=== PATIENT | male | born 1975 ===

== ENCOUNTER → 2019-12-18 10:37 | Outpatient (BNVA) | payer BC, SELFPAY | PROVIDERS: PCP Internal Medicine; Visit Provider Urology | DX: Z76.89 Persons encountering health services in other specified circumstances (principal) ==

== ENCOUNTER → 2020-07-14 14:14 | Outpatient (BNVA) | payer BC, SELFPAY | PROVIDERS: Visit Provider Urology ==

== ENCOUNTER → 2020-11-16 13:28 | Outpatient (BNVA) | payer BC, SELFPAY | PROVIDERS: Visit Provider Urology ==

== ENCOUNTER → 2022-02-14 09:40 | Outpatient (BNVA) | payer BC, SELFPAY | PROVIDERS: Visit Provider Urology | DX: E29.1 Testicular hypofunction (principal) ==

== ENCOUNTER 2022-12-20 10:42 | Outpatient (AMB) | payer BC, SELFPAY ==
--- NOTE | 2022-12-20 10:52 | MHC.OFFVIS ---
Intake Intake Visit Reasons: 6M PSA/TESTO(SET) Intake Note: Patient is Present for Follow Up Urology Medication: Clomiphene (Needs refill) Antibiotic Allergies: None Blood Thinners: None Pharmacy: [facility] PVR: Compliants: Allergies No Known Allergies Allergy (Verified 02/14/22 10:00) Medication List - Last Reconciled 12/20/22 by William Sorenson MD amlodipine 5 mg PO DAILY blood-glucose sensor (Dexcom G6 Sensor device) As directed blood-glucose transmitter (Dexcom G6 Transmitter device) As directed clomiphene citrate 50 mg PO DAILY 90 days glimepiride 2 mg PO DAILY ibuprofen 800 mg PO TID lisinopril 40 mg PO DAILY lisinopril 30 mg PO DAILY metformin ER 1,500 mg PO DAILY metoprolol succinate ER 75 mg PO DAILY metoprolol succinate ER 100 mg PO DAILY pioglitazone 30 mg PO DAILY sacubitril-valsartan 49-51 mg 1 tab PO BID semaglutide 7 mg PO DAILY semaglutide (Rybelsus) 14 mg PO QAM sertraline 50 mg PO DAILY tadalafil 5 mg PO DAILY 90 days HPI HPI Comments History of Present Illness Details Pal is a pleasant male. He has seen for following urologic conditions - hypogonadism - erectile dysfunction 12/11 - T 478 Off clomiphene past 5 months Start low-dose tadalafil 6 month follow-up Hypogonadism: Stable restart with clomiphene The patient presents for hypogonadism which was diagnosed years ago. Laboratory testing has included Testosterone - 1200 on gel 03/07 on Clomid T 278 - switch to daily 04/07 Clomid daily - T 555, Estradiol 47 09/04 , Testosterone 480 09/05 , Testosterone 600, Est 53, PSA 1.5 09/06 T 628 PSA 2.8 04/10 T 640 PSA 2.0. - 12/08 T 540, 06/09 T 712, 11/09 T 669, 02/09 T 555 P 0.7 Medication(s) include Testosterone gel. April 2015 switched to clomid 50 mg QOD. Feb 2016 - switch to clomid 50mg daily Jul 2017 clomid 100mg daily May 2020 Clomid 50 mg daily Follow-up in 6 months Review of Systems Const Denies chills and Denies fever(s) Card Reports no additional complaints and Denies syncope Resp Denies cough GI Denies abdominal pain and Denies heartburn Reports as per HPI and Denies change in libido Neuro Denies syncope Psych Denies change in libido Endo Denies change in libido Physical Exam Const General: cooperative, healthy appearing, comfortable and no acute distress Orientation/consciousness: patient oriented x3 HEENT Face and sinus: Yes normal facial exam Mouth: moist mucous membranes Neck Neck: Yes normal visual inspection, Yes full ROM and Yes trachea midline Chest Chest palpation & inspection: normal inspection of the chest Resp Effort & Inspection: normal respiratory effort, able to speak in complete sentences and no respiratory distress GI Inspection: Yes normal to inspection Back/Spine/Pelvis Cervical Spine: normal cervical lordosis Thoracic/Lumbar Spine: thoracic and lumbar spine normal to inspection Skin General skin exam: no rashes or lesions noted Neuro General: patient oriented x3, gait normal, tone normal and moves all extremities Extrem General: Yes normal to inspection and Yes capillary refill normal Assessment & Plan Assessment & Plan (1) Hypogonadism in male: Comment: good response to clomiphene 50 mg Code(s): E29.1 - Testicular hypofunction (2) Erectile dysfunction associated with type 2 diabetes mellitus: Code(s): E11.69 - Type 2 diabetes mellitus with other specified complication; N52.1 - Erectile dysfunction due to diseases classified elsewhere Plan Six month Orders: Orders Testosterone, Total 6 Months E29.1 - Testicular hypofunction Medications: New tadalafil 5 mg PO DAILY 90 tabs 1RF sexual activity 90 days E29.1 - Testicular hypofunction, N52.01 - Erectile dysfunction due to arterial insufficiency Patient Instructions: Imaging studies, laboratory and physical exam results were discussed and reviewed in detail. No major barriers to patient understanding were identified. An opportunity to ask questions regarding the treatment plan was provided. All questions were answered. The patient expressed understanding and agreement with the above treatment plan. The patient is aware they should contact our office by phone for worsening of their current condition or the appearance of new urologic symptoms. Compliance is encouraged with any medications and followup testing that is ordered. It is a privilege to participate in the urologic care of your patient. If you have any questions or concerns regarding treatment for the above conditions, or other urologic issues, please do not hesitate to contact me. The office telephone contact is [phone]. This note is constructed using voice recognition software. While every effort has been made to ensure accuracy catcher helper errors may have been included. Yours sincerely, Dr William Sorenson MD, MARTIN [facility] - Urology Providers of Expert, Compassionate Care for the Genitourinary System Coding Level of Care Code Est Pt Level 4 (81507) Diagnoses Hypogonadism in male E29.1 Erectile dysfunction associated with type 2 diabetes mellitus E11.69; N52.1
== END 2022-12-20 11:20 | disposition home or self-care (01) ==
PROVIDERS: Visit Provider Urology
DX: E29.1 Testicular hypofunction (principal); E11.69 Type 2 diabetes mellitus with other specified complication; N52.1 Erectile dysfunction due to diseases classified elsewhere
CPT/HCPCS: 99214

== ENCOUNTER → 2022-12-20 10:42 | Outpatient (BNVA) | payer BC, SELFPAY | PROVIDERS: Visit Provider Urology ==

== ENCOUNTER 2023-06-20 14:15 | Outpatient (AMB) | payer BC, SELFPAY ==
--- NOTE | 2023-06-20 14:38 | A.OFFVIS_ITS ---
Intake Visit Reasons: 6M Testosterone(set)Confirmed Intake Note: Patient is Present for Follow Up Urology Medication: No longer taking Tadalafil Antibiotic Allergies:None Blood Thinners: None Allergies No Known Allergies Allergy (Verified 06/20/23 14:42) Medication List - Last Reconciled 06/20/23 by William Sorenson MD amlodipine 5 mg PO DAILY blood-glucose sensor (Dexcom G6 Sensor device) As directed blood-glucose transmitter (Dexcom G6 Transmitter device) As directed clomiphene citrate 50 mg PO DAILY 90 days glimepiride 2 mg PO DAILY ibuprofen 800 mg PO TID lisinopril 40 mg PO DAILY lisinopril 30 mg PO DAILY metformin ER 1,500 mg PO DAILY metoprolol succinate ER 75 mg PO DAILY metoprolol succinate ER 100 mg PO DAILY pioglitazone 30 mg PO DAILY sacubitril-valsartan 49-51 mg 1 tab PO BID semaglutide 7 mg PO DAILY semaglutide (Rybelsus) 14 mg PO QAM sertraline 50 mg PO DAILY tadalafil 5 mg PO DAILY 90 days HPI Comments Details: Pal is a pleasant male. He has seen for following urologic conditions - hypogonadism - erectile dysfunction Recent testosterone 250 Willing to trial daily low-dose tadalafil Impression provided Six-month follow-up repeat labs Hypogonadism: Stable restart with clomiphene The patient presents for hypogonadism which was diagnosed years ago. Laboratory testing has included Testosterone - 1200 on gel 03/07 on Clomid T 278 - switch to daily 04/07 Clomid daily - T 555, Estradiol 47 09/04 , Testosterone 480 09/05 , Testosterone 600, Est 53, PSA 1.5 09/06 T 628 PSA 2.8 04/10 T 640 PSA 2.0. - 12/08 T 540, 06/09 T 712, 11/09 T 669, 02/09 T 555 P 0.7, 12/11 T 480, 06/12 250 Medication(s) include Testosterone gel. April 2015 switched to clomid 50 mg QOD. Feb 2016 - switch to clomid 50mg daily Jul 2017 clomid 100mg daily May 2020 Clomid 50 mg daily Follow-up in 6 months Review of Systems Const Denies chills and Denies fever(s) Card Reports no additional complaints and Denies syncope Resp Denies cough GI Denies abdominal pain and Denies heartburn Reports as per HPI and Denies change in libido Neuro Denies syncope Psych Denies change in libido Endo Denies change in libido Physical Exam Const General: cooperative, healthy appearing, comfortable and no acute distress Orientation/consciousness: patient oriented x3 HEENT Face and sinus: Yes normal facial exam Mouth: moist mucous membranes Neck Neck: Yes normal visual inspection, Yes full ROM and Yes trachea midline Chest Chest palpation & inspection: normal inspection of the chest Resp Effort & Inspection: normal respiratory effort, able to speak in complete sentences and no respiratory distress GI Inspection: Yes normal to inspection Back/Spine/Pelvis Cervical Spine: normal cervical lordosis Thoracic/Lumbar Spine: thoracic and lumbar spine normal to inspection Skin General skin exam: no rashes or lesions noted Neuro General: patient oriented x3, gait normal, tone normal and moves all extremities Extrem General: Yes normal to inspection and Yes capillary refill normal Assessment & Plan Assessment & Plan (1) Hypogonadism in male: Comment: good response to clomiphene 50 mg Code(s): E29.1 - Testicular hypofunction Category: Medical (2) Erectile dysfunction associated with type 2 diabetes mellitus: Code(s): E11.69 - Type 2 diabetes mellitus with other specified complication; N52.1 - Erectile dysfunction due to diseases classified elsewhere Category: Medical Plan Six-month follow-up testosterone Orders: Orders Testosterone, Free/Total 6 Months E29.1 - Testicular hypofunction Medications: Refilled tadalafil 5 mg PO DAILY 90 tabs 1RF sexual activity 90 days E29.1 - Testicular hypofunction Patient Instructions: Imaging studies, laboratory and physical exam results were discussed and reviewed in detail. No major barriers to patient understanding were identified. An opportunity to ask questions regarding the treatment plan was provided. All questions were answered. The patient expressed understanding and agreement with the above treatment plan. The patient is aware they should contact our office by phone for worsening of their current condition or the appearance of new urologic symptoms. Compliance is encouraged with any medications and followup testing that is ordered. It is a privilege to participate in the urologic care of your patient. If you have any questions or concerns regarding treatment for the above conditions, or other urologic issues, please do not hesitate to contact me. The office telephone contact is [phone]. This note is constructed using voice recognition software. While every effort has been made to ensure accuracy blue leather setter errors may have been included. Yours sincerely, Dr William Sorenson MD, [facility] - Urology Providers of Expert, Compassionate Care for the Genitourinary System Coding Level of Care Code Est Pt Level 4 (69808) Diagnoses Hypogonadism in male E29.1 Erectile dysfunction associated with type 2 diabetes mellitus E11.69; N52.1
== END 2023-06-20 15:36 | disposition home or self-care (01) ==
PROVIDERS: Visit Provider Urology
DX: E29.1 Testicular hypofunction (principal); E11.69 Type 2 diabetes mellitus with other specified complication; N52.1 Erectile dysfunction due to diseases classified elsewhere
CPT/HCPCS: 99213

== ENCOUNTER → 2023-06-20 14:15 | Outpatient (BNVA) | payer BC, SELFPAY | PROVIDERS: Visit Provider Urology ==

== ENCOUNTER 2023-12-12 11:11 | Outpatient (AMB) | payer BC, SELFPAY ==
--- NOTE | 2023-12-12 11:22 | MHC.OFFVIS ---
Intake Visit Reasons: 6m/labs(set) Intake Note: Patient is present for Follow Up Testosterone Results Urology Med: Tadalafil Antibiotic Allergy: None Blood Thinner: None Recent Testosterone: 12/04/2023 Total Testosterone: 323 Free Testosterone: 8.3 Sales Apprentice Required: No Accompanied by: Self / Same As Patient Allergies No Known Allergies Allergy (Verified 12/12/23 11:25) HPI Comments Details: Pal is a pleasant male. He has seen for following urologic conditions - hypogonadism - erectile dysfunction Testosterone persistently low 325 Will switch to topical Six-month follow-up labs Target is 600 Hypogonadism: Stable restart with clomiphene The patient presents for hypogonadism which was diagnosed years ago. Laboratory testing has included Testosterone - 1200 on gel 03/07 on Clomid T 278 - switch to daily 04/07 Clomid daily - T 555, Estradiol 47 09/04 , Testosterone 480 09/05 , Testosterone 600, Est 53, PSA 1.5 09/06 T 628 PSA 2.8 04/10 T 640 PSA 2.0. - 12/08 T 540, 06/09 T 712, 11/09 T 669, 02/09 T 555 P 0.7, 12/11 T 480, 06/12 250, 12/12 T 323 Fr 8.3 Medication(s) include Testosterone gel. April 2015 switched to clomid 50 mg QOD. Feb 2016 - switch to clomid 50mg daily Jul 2017 clomid 100mg daily May 2020 Clomid 50 mg daily Follow-up in 6 months Review of Systems Const Denies chills and Denies fever(s) Card Reports no additional complaints and Denies syncope Resp Denies cough GI Denies abdominal pain and Denies heartburn Reports as per HPI and Denies change in libido Neuro Denies syncope Psych Denies change in libido Endo Denies change in libido Physical Exam Const General: cooperative, healthy appearing, comfortable and no acute distress Orientation/consciousness: patient oriented x3 HEENT Face and sinus: Yes normal facial exam Mouth: moist mucous membranes Neck Neck: Yes normal visual inspection, Yes full ROM and Yes trachea midline Chest Chest palpation & inspection: normal inspection of the chest Resp Effort & Inspection: normal respiratory effort, able to speak in complete sentences and no respiratory distress GI Inspection: Yes normal to inspection Back/Spine/Pelvis Cervical Spine: normal cervical lordosis Thoracic/Lumbar Spine: thoracic and lumbar spine normal to inspection Skin General skin exam: no rashes or lesions noted Neuro General: patient oriented x3, gait normal, tone normal and moves all extremities Extrem General: Yes normal to inspection and Yes capillary refill normal Assessment & Plan Assessment & Plan (1) Erectile dysfunction associated with type 2 diabetes mellitus: Code(s): E11.69 - Type 2 diabetes mellitus with other specified complication; N52.1 - Erectile dysfunction due to diseases classified elsewhere Category: Medical (2) Male infertility: Code(s): N46.9 - Male infertility, unspecified Category: Medical (3) Hypogonadism in male: Comment: good response to clomiphene 50 mg Code(s): E29.1 - Testicular hypofunction Category: Medical Plan Switch to testosterone gel Six-month follow-up labs tele Orders: Orders Prostate Specific Antigen 6 Months E29.1 - Testicular hypofunction Testosterone, Total 6 Months E29.1 - Testicular hypofunction Complete Blood Count no Diff 6 Months E29.1 - Testicular hypofunction Medications: New testosterone Apply to shoulder and rub in until dry 1 packet transdermal DAILY 30 days 150 grams 5RF E29.1 - Testicular hypofunction Patient Instructions: Imaging studies, laboratory and physical exam results were discussed and reviewed in detail. No major barriers to patient understanding were identified. An opportunity to ask questions regarding the treatment plan was provided. All questions were answered. The patient expressed understanding and agreement with the above treatment plan. The patient is aware they should contact our office by phone for worsening of their current condition or the appearance of new urologic symptoms. Compliance is encouraged with any medications and followup testing that is ordered. It is a privilege to participate in the urologic care of your patient. If you have any questions or concerns regarding treatment for the above conditions, or other urologic issues, please do not hesitate to contact me. The office telephone contact is [phone]. This note is constructed using voice recognition software. While every effort has been made to ensure accuracy product line manager errors may have been included. Yours sincerely, Dr William Sorenson MD, M[facility] - Urology Providers of Expert, Compassionate Care for the Genitourinary System Coding Level of Care Code Est Pt Level 4 (86676) Diagnoses Erectile dysfunction associated with type 2 diabetes mellitus E11.69; N52.1 Male infertility N46.9 Hypogonadism in male E29.1
== END 2023-12-12 11:40 | disposition home or self-care (01) ==
PROVIDERS: Visit Provider Urology
DX: E11.69 Type 2 diabetes mellitus with other specified complication (principal); N52.1 Erectile dysfunction due to diseases classified elsewhere; N46.9 Male infertility, unspecified; E29.1 Testicular hypofunction
CPT/HCPCS: 99214

== ENCOUNTER → 2023-12-12 11:11 | Outpatient (BNVA) | payer BC, SELFPAY | PROVIDERS: Visit Provider Urology ==

== ENCOUNTER 2024-06-11 10:49 | Outpatient (AMB) | payer BC, SELFPAY ==
--- NOTE | 2024-06-11 10:49 | MHC.OFFVIS ---
Intake Visit Reasons: 6m/labs Intake Note: Patient is present for 6M/LABS Urology Medication:TADALAFIL,TESTOSTERONE Antibiotic Allergy:NONE Blood Thinner:NONE [employer] Scout Required: No Allergies No Known Allergies Allergy (Verified 06/11/24 10:50) HPI Comments Details: Pal is a pleasant male. He has seen for following urologic conditions - hypogonadism - erectile dysfunction Telemedicine Evaluation 15 min Consultation [employer] [place] Video Currently having difficulty with blood sugar management Current readings in the 3-400 range Has been restarted on semaglutide Six-month follow-up labs suggest PSA of 1200 This would be highly unusual in setting of testosterone gel Number continue with current 1 pack per day Hypogonadism: Stable restart with clomiphene The patient presents for hypogonadism which was diagnosed years ago. Laboratory testing has included Testosterone - 1200 on gel 03/07 on Clomid T 278 - switch to daily 04/07 Clomid daily - T 555, Estradiol 47 09/04 , Testosterone 480 09/05 , Testosterone 600, Est 53, PSA 1.5 09/06 T 628 PSA 2.8 04/10 T 640 PSA 2.0. - 12/08 T 540, 06/09 T 712, 11/09 T 669, 02/09 T 555 P 0.7, 12/11 T 480, 06/12 250, 12/12 T 323 Fr 8.3 Medication(s) include Testosterone gel. April 2015 switched to clomid 50 mg QOD. Feb 2016 - switch to clomid 50mg daily Jul 2017 clomid 100mg daily May 2020 Clomid 50 mg daily Follow-up in 6 months Review of Systems Const All systems reviewed & are unremarkable except as noted in HPI and below Reports no additional complaints Resp Reports no additional complaints GI Reports no additional complaints Reports as per HPI Musc Reports no additional complaints Physical Exam Telemedicine evaluation Appropriate responses Regular breathing rate and rhythm HEENT Head: Yes normal to inspection Ears: hearing grossly normal bilaterally Eyes General: appearance normal, both eyes and all related structures Neck Neck: Yes normal visual inspection Chest Chest palpation & inspection: normal inspection of the chest Resp Effort & Inspection: normal respiratory effort and able to speak in complete sentences Telehealth Telehealth Telehealth Platform: [email or web address] Location of provider rendering services: practice address Location of patient: address on file Patient Identification confirmed using: Name, : Yes Telehealth method: video Patient verbally consented to treatment: Yes Patient verbally consented to billing insurance company: Yes Patient informed of any privacy concerns related to visit: Yes Minutes spent on Phone/Video with Pt.: 15 Assessment & Plan Assessment & Plan (1) Hypogonadism in male: Comment: good response to clomiphene 50 mg Code(s): E29.1 - Testicular hypofunction Category: Medical (2) Erectile dysfunction associated with type 2 diabetes mellitus: Code(s): E11.69 - Type 2 diabetes mellitus with other specified complication; N52.1 - Erectile dysfunction due to diseases classified elsewhere Category: Medical Plan Lab work six-month Orders: Orders Testosterone, Total 6 Months E11.69 - Type 2 diabetes mellitus with other specified complication, N52.1 - Erectile dysfunction due to diseases classified elsewhere Prostate Specific Antigen 6 Months E11.69 - Type 2 diabetes mellitus with other specified complication, N52.1 - Erectile dysfunction due to diseases classified elsewhere Complete Blood Count no Diff 6 Months E11. - Type 2 diabetes mellitus with other specified complication, N52.1 - Erectile dysfunction due to diseases classified elsewhere Medications: Refilled testosterone Apply to shoulder and rub in until dry 1 packet transdermal DAILY 150 grams 5RF 30 days E29.1 - Testicular hypofunction Patient Instructions: This note is constructed using voice recognition software. While every effort has been made to ensure accuracy clamp forklift operator errors may have been included. Imaging studies, laboratory and physical exam results were discussed and reviewed in detail. No major barriers to patient understanding were identified. An opportunity to ask questions regarding the treatment plan was provided. All questions were answered. The patient expressed understanding and agreement with the above treatment plan. The patient is aware they should contact our office by phone for worsening of their current condition or the appearance of new urologic symptoms. Compliance is encouraged with any medications and followup testing that is ordered. It is a privilege to participate in the urologic care of your patient. If you have any questions or concerns regarding treatment for the above conditions, or other urologic issues, please do not hesitate to contact me. The office telephone contact is [phone]. Sincerely, Dr William Sorenson MD, M[facility] - Urology Compassionate Specialist Care for the Genitourinary System Coding Level of Care Code Tele Est Pt Level 4 (25972) Complex EM visit Add On G2211 Diagnoses Hypogonadism in male E29.1 Erectile dysfunction associated with type 2 diabetes mellitus E11.69; N52.1
--- OUTSIDE RECORDS SUMMARY | 2024-06-11 12:53 | XMS_ITS ---
Author Name [facility] Organization Unknown Care Team Organization Name Specialty Phone Email Start Date End Da erik [facility] 01/04/2024
--- OUTSIDE RECORDS SUMMARY | 2024-06-11 12:53 | XMS_ITS | Clinical Summary ---
Author Organization [facility] ity Address [address] [place] [address] Care Team Providers Care Program Director Group Work Name Role Phone Mehran Centeno MD Primary Care Provider [phone] Medications metoprolol succinate (TOPROL-XL) 100 mg 24 hr tablet TAKE 1 TABLET BY MOUTH DAILY. IN ADDITION TO 50MG TABLET FOR A TOTAL OF 150MG DAILY INTAKE 90 tablet 2 12/28/2023 Active metoprolol succinate (TOPROL-XL) 50 mg 24 hr tablet Take one tablet by mouth daily In addition to 100mg tab for total daily intake of 150mg 90 tablet 3 12/28/2023 Active Family History Medical History Relation Name Comments Hypertension Paternal Grandfather Other: CAD Paternal Grandfather Hypertension Paternal Grandmother Other: CAD Paternal Grandmother Diabetes Sister Hyperlipidemia Sister Hypertension Sister Stroke Sister Relation Name Status Comments Paternal Grandfather Paternal Grandmother Sister Social History Tobacco Use Types Packs/Day Years Used Date Smoking Tobacco: Never Smokeless Tobacco: Never Alcohol Use Standard Drinks/Week Comments Yes 0 (1 standard drink = 0.6 oz pur e alcohol) Sex and Gender Information Value Date Recorded Sex Assigned at Not on file Legal Sex Male 2:35 PM EST Gender Identity Not on file Sexual Orientation Not on file Obstetrics History Last Filed Vital Signs Vital Sign Reading Time Taken Comments Blood Pressure 118/64 05/03/2023 10:50 AM EDT Pulse 109 05/03/2023 10:50 AM EDT Temperature - - Respiratory Rate - - Oxygen Saturation - - Inhaled Oxygen Concentration - - Weight 112 kg (247 lb) 05/03/2023 10:50 AM EDT Height 177.8 cm (5' 10 ) 05/03/2023 10:50 AM EDT Body Mass Index 35.44 05/03/2023 10:50 AM EDT Plan of Treatment Upcoming Encounters Date Type Department Care Team (Late st Contact Info) Description 06/25/2024 9:10 AM EDT Office Visit [facility] [address] [facility] [address] [place] [id number] Veronica Mccartney, MARIANNA [address] [place] [address] Health Maintenance Due Date Last Done Comments Diabetes: Annual GFR (Glomer ular Filtration Rate) 1975 Diabetes: Annual Foot Exam 1985 Diabetes: Annual Retina Eye Exam 1985 DTaP,Tdap,and Td Vaccines (1 - Tdap) 1994 Hepatitis B Vaccines (1 of 3 - 19+ 3-dose series) 1994 Cholesterol Screening (Lipid Panel) 01/28/2022 Colorectal Cancer Screening: Colonoscopy 01/28/2022 Depression Screening 01/28/2022 HIV Screening 01/28/2022 Hepatitis C Screening 01/28/2022 Social Influencers of Health Screening 01/28/2022 Hypertension/CHF/CAD Annual BMP Blood Test 09/14/2023 COVID-19 Vaccine (2023-2 5 season) 2023 Diabetes: Annual Urine Albumin-Creatinine Ratio (uACR) 12/28/2023 Diabetes: Blood Sugar Contro l Test (HGBA1C) 12/28/2023 Influenza Vaccine (Season Ended) 2024 HIB Vaccines Aged Out No longer eligi ble based on patient's age to complete this topic HPV Vaccines Aged Out No longer eligi ble based on patient's age to complete this topic Hepatitis A Vaccines Aged Out No long er eligible based on patient's age to complete this topic IPV Vaccines Aged Out No longer eligi ble based on patient's age to complete this topic MMR Vaccines Aged Out No longer eligi ble based on patient's age to complete this topic Meningococcal ACWY Vaccine Aged Out N o longer eligible based on patient's age to complete this topic Meningococcal B Vaccine Aged Out No l onger eligible based on patient's age to complete this topic Pneumococcal Vaccine: Pediat rics (0 to 5 Years) and At-Risk Patients (6 to 64 Years) Aged Out No longer eligible b ased on patient's age to complete this topic RSV Immunization Patients Un adriana 20 months Aged Out No longer eligible b ased on patient's age to complete this topic Varicella Vaccines Aged Out No longer eligible based on patient's age to complete this topic Insurance [facility] Care Teams Program Director Group Work Relationship Specialty Start Date End Date Mehran Centeno MD [address] [place] [phone] PCP - General Internal Medicine 01/20/20
--- OUTSIDE RECORDS SUMMARY | 2024-06-11 12:53 | XMS_ITS | Continuity of Care Document ---
Author Organization [employer] [facility] Address [address] [address] Problems Condition ICD9 code ICD10 code SNOMED code Start Date End Date S sharon Type 2 diabetes mellitus without complications E11.9 Encounter for screening for other metabolic disorders Z13.228 Results Test Value / Unit Interpretation Reference Ran Comp. Metabolic Panel (14)[[id number]]?Collected: 09/14/2023 06:36 PM?Specimen Received: 09/14/2023 05:00 AM?Source: [facility] Glucose [888832] 99 mg/dL 70-99 mg/dL BUN [620908] 11 mg/dL 6-24 mg/dL Creatinine [824571] 0.91 mg/dL 0.76-1.2 7 mg/dL eGFR [010150] 104 mL/min/1.73 >59 mL/min/ 1.73 BUN/Creatinine Ratio [978434] 12 9-20 Sodium [367047] 139 mmol/L 134-144 mmol /L Potassium [318095] 4.3 mmol/L 3.5-5.2 m mol/L Chloride [042020] 103 mmol/L 96-106 mmo l/L Carbon Dioxide, Total [863567] 22 mmol/L 20-29 mmol/L Calcium [339512] 9.1 mg/dL 8.7-10.2 mg /dL Protein, Total [179236] 6.8 g/dL 6.0- 8.5 g/dL Albumin [883431] 4.1 g/dL 4.1-5.1 g/d L Globulin, Total [835287] 2.7 g/dL 1.5 -4.5 g/dL Bilirubin, Total [470509] 0.3 mg/dL 0. 0-1.2 mg/dL Alkaline Phosphatase [227054] 81 IU/L 44-121 IU/L AST (SGOT) [047943] 20 IU/L 0-40 IU/ L ALT (SGPT) [490440] 21 IU/L 0-44 IU/ L Lipid Panel[805288]?Collected: 09/14/2023 06:36 PM?Specimen Received: 09/14/2023 05:00 AM?Source: [facility] Cholesterol, Total [876502] 155 mg/dL 100-199 mg/dL Triglycerides [409353] 119 mg/dL 0-149 mg/dL HDL Cholesterol [844480] 41 mg/dL >39 mg/dL VLDL Cholesterol [place] [515576] 22 mg/dL 5-40 mg/dL LDL Chol Calc (NIH) [278984] 92 mg/dL 0-99 mg/dL Albumin/Creatinine Ratio,Uri ne[613156]?Collected: 09/14/2023 06:36 PM?Specimen Received: 09/14/2023 05:00 AM?Source: [facility] Creatinine, Urine [906041] 173.2 mg/dL N ot Estab. mg/dL Albumin, Urine [406094] 40.9 ug/mL Not Estab. ug/mL Alb/Creat Ratio [804896] 24 mg/g creat 0- 29 mg/g creat Normal: 0 - 29 Moderately in creased: 30 - 300 Severely increased: >300 Hemoglobin A1c[588550]?Collected: 09/14/2023 06:36 PM?Specimen Received: 09/14/2023 05:00 AM?Source: [facility] Hemoglobin A1c [871415] 6.7 % H 4.8- 5.6 % . Prediabetes: 5.7 - 6.4 Jimena betes: >6.4 Glycemic control for adults with diabetes: 7.0 Comp. Metabolic Panel (14)[3 [id number]]?Collected: 09/14/2023 06:36 PM?Specimen Received: 09/14/2023 05:00 AM?Source: [facility] Glucose [916560] 102 mg/dL H 70-99 mg/dL BUN [561977] 11 mg/dL 6-24 mg/dL Creatinine [747649] 0.89 mg/dL 0.76-1.2 7 mg/dL eGFR [447548] 106 mL/min/1.73 >59 mL/min/ 1.73 BUN/Creatinine Ratio [133976] 12 9-20 Sodium [127353] 139 mmol/L 134-144 mmol /L Potassium [629562] 4.3 mmol/L 3.5-5.2 m mol/L Chloride [667471] 104 mmol/L 96-106 mmo l/L Carbon Dioxide, Total [162300] 20 mmol/L 20-29 mmol/L Calcium [068434] 9.2 mg/dL 8.7-10.2 mg /dL Protein, Total [233162] 6.9 g/dL 6.0- 8.5 g/dL Albumin [471664] 4.2 g/dL 4.1-5.1 g/d L Globulin, Total [759117] 2.7 g/dL 1.5 -4.5 g/dL Bilirubin, Total [135541] 0.3 mg/dL 0. 0-1.2 mg/dL Alkaline Phosphatase [821796] 80 IU/L 44-121 IU/L AST (SGOT) [329001] 19 IU/L 0-40 IU/ L ALT (SGPT) [949367] 20 IU/L 0-44 IU/ L Lipid Panel[[id number]]?Collected: 09/14/2023 06:36 PM?Specimen Received: 09/14/2023 05:00 AM?Source: [facility] Cholesterol, Total [496729] 157 mg/dL 100-199 mg/dL Triglycerides [807235] 123 mg/dL 0-149 mg/dL HDL Cholesterol [884897] 41 mg/dL >39 mg/dL VLDL Cholesterol [place] [849953] 22 mg/dL 5-40 mg/dL LDL Chol Calc ([facility]) [831834] 94 mg/dL 0-99 mg/dL Hemoglobin A1c[276651]?Collected: 09/14/2023 06:36 PM?Specimen Received: 09/14/2023 05:00 AM?Source: [facility] Hemoglobin A1c [024511] 6.6 % H 4.8- 5.6 % . Prediabetes: 5.7 - 6.4 Jimena betes: >6.4 Glycemic control for adults with diabetes: 7.0 Allergies, adverse reactions, alerts No known allergies and adverse reactions Medications No administered medications reported Vital Signs No vital signs reported Social History No smoking Hx information available
== END 2024-06-11 11:37 | disposition home or self-care (01) ==
LOC: HO.HUSH 10:49
PROVIDERS: Visit Provider Urology
DX: E29.1 Testicular hypofunction (principal); E11.69 Type 2 diabetes mellitus with other specified complication; N52.1 Erectile dysfunction due to diseases classified elsewhere
CPT/HCPCS: 99214

== ENCOUNTER 2024-12-10 11:04 | Outpatient (AMB) | payer BC, SELFPAY ==
--- NOTE | 2024-12-10 11:31 | MHC.OFFVIS ---
Intake Visit Reasons: 6m/labs Intake Note: Patient is present for 6M/LABS Urology Medication:TADALAFIL,TESTOSTERONE Blood Thinner:NONE labs done 11/27/24: PSA 1.3, TT 346 Instructional Designer Required: No Accompanied by: Self / Same As Patient Allergies No Known Allergies Allergy (Verified 12/10/24 11:32) HPI Comments Details: Pal is a pleasant male. He has seen for following urologic conditions - hypogonadism - erectile dysfunction - bladder outlet obstruction Six-month follow-up Continues with tadalafil 5 mg daily Testosterone refills from [facility] have been delayed Prescription is written for 30 days +5 refills Previously was available as 90 day prescription Hypogonadism: Stable restart with clomiphene The patient presents for hypogonadism which was diagnosed years ago. Laboratory testing has included Testosterone - 1200 on gel 03/07 on Clomid T 278 - switch to daily 04/07 Clomid daily - T 555, Estradiol 47 09/04 , Testosterone 480 09/05 , Testosterone 600, Est 53, PSA 1.5 09/06 T 628 PSA 2.8 04/10 T 640 PSA 2.0. - 12/08 T 540, 06/09 T 712, 11/09 T 669, 02/09 T 555 P 0.7, 12/11 T 480, 06/12 250, 12/12 T 323 Fr 8.3, 12/13 T 350 PSA 1.3 Medication(s) include Testosterone gel. April 2015 switched to clomid 50 mg QOD. Feb 2016 - switch to clomid 50mg daily Jul 2017 clomid 100mg daily May 2020 Clomid 50 mg daily Follow-up in 6 months Review of Systems Const Denies chills and Denies fever(s) Card Reports no additional complaints and Denies syncope Resp Denies cough GI Denies abdominal pain and Denies heartburn Reports as per HPI and Denies change in libido Neuro Denies syncope Psych Denies change in libido Endo Denies change in libido Physical Exam Const General: cooperative, healthy appearing, comfortable and no acute distress Orientation/consciousness: patient oriented x3 HEENT Face and sinus: Yes normal facial exam Mouth: moist mucous membranes Neck Neck: Yes normal visual inspection, Yes full ROM and Yes trachea midline Chest Chest palpation & inspection: normal inspection of the chest Resp Effort & Inspection: normal respiratory effort, able to speak in complete sentences and no respiratory distress GI Inspection: Yes normal to inspection Back/Spine/Pelvis Cervical Spine: normal cervical lordosis Thoracic/Lumbar Spine: thoracic and lumbar spine normal to inspection Skin General skin exam: no rashes or lesions noted Neuro General: patient oriented x3, gait normal, tone normal and moves all extremities Extrem General: Yes normal to inspection and Yes capillary refill normal Assessment & Plan Assessment & Plan (1) Erectile dysfunction associated with type 2 diabetes mellitus: Code(s): E11.69 - Type 2 diabetes mellitus with other specified complication; N52.1 - Erectile dysfunction due to diseases classified elsewhere Category: Medical (2) Hypogonadism in male: Comment: good response to clomiphene 50 mg Code(s): E29.1 - Testicular hypofunction Category: Medical Plan Six-month follow-up lab work Medications: Refilled tadalafil 5 mg PO DAILY 90 tabs 1RF sexual activity 90 days E29.1 - Testicular hypofunction testosterone Apply to shoulder and rub in until dry 1 packet transdermal DAILY 150 grams 5RF 30 days E29.1 - Testicular hypofunction Patient Instructions: This note is constructed using voice recognition software. While every effort has been made to ensure accuracy funeral service practitioner/embalmer errors may have been included. Imaging studies, laboratory and physical exam results were discussed and reviewed in detail. No major barriers to patient understanding were identified. An opportunity to ask questions regarding the treatment plan was provided. All questions were answered. The patient expressed understanding and agreement with the above treatment plan. The patient is aware they should contact our office by phone for worsening of their current condition or the appearance of new urologic symptoms. Compliance is encouraged with any medications and followup testing that is ordered. It is a privilege to participate in the urologic care of your patient. If you have any questions or concerns regarding treatment for the above conditions, or other urologic issues, please do not hesitate to contact me. The office telephone contact is [phone]. Sincerely, Dr William Sorenson MD, [facility] - Urology Compassionate Specialist Care for the Genitourinary System Coding Level of Care Code Est Pt Level 3 (85842) Complex EM visit Add On G2211 Diagnoses Erectile dysfunction associated with type 2 diabetes mellitus E11.69; N52.1 Hypogonadism in male E29.1
== END 2024-12-10 12:00 | disposition home or self-care (01) ==
LOC: HO.HUSH 11:04
PROVIDERS: Visit Provider Urology
DX: E11.69 Type 2 diabetes mellitus with other specified complication (principal); N52.1 Erectile dysfunction due to diseases classified elsewhere; E29.1 Testicular hypofunction
CPT/HCPCS: 99213